=== PATIENT | male | born 1965 | race Caucasian/White ===

== ENCOUNTER 2017-01-20 13:07 | Observation (INO) | payer OTHER ==
[2017-01-20 13:46] LABS: ANION GAP 17 mEq/L (8-16); CALCIUM 9.6 mg/dL (8.5-10.4); CARBON DIOXIDE 19 mEq/l (22-31); CHLORIDE 107 mEq/L (97-110); GLOMERULAR FILTRATION RATE > 60; GLUCOSE 96 mg/dL (70-100); POTASSIUM 3.5 mEq/L (3.5-5.2); SODIUM 143 mEq/L (134-144)
[2017-01-20 13:59] LABS: TROPONIN I 0.726 ng/mL (0.000-0.034)
--- NOTE | 2017-01-20 13:59 | EDPHY ---
H & P Stated Complaint: Feels shakey, anxious today, feels like heart is racing Time Seen by Provider: 01/20/17 13:21 HPI/ROS: CHIEF COMPLAINT: Feeling anxious HISTORY OF PRESENT ILLNESS: The patient presents the ED after he developed symptoms of anxiety at work approximately 1 hr ago. The patient reports feeling restless and unsettled. He denies any chest pain or shortness of breath. He denies any acute headache, neck pain, numbness or weakness. The patient denies prior history of the symptoms. The patient denies any significant past medical history and specifically denies hypertension, diabetes and hyperlipidemia. The patient is a daily drinker and has approximately 1 glass of wine per night. He denies a significant change in his pattern of alcohol consumption. The patient denies obvious symptoms of stress or anxiety. REVIEW OF SYSTEMS: A comprehensive 10 point review of systems is otherwise negative aside from elements mentioned in the history of present illness. Source: Patient Exam Limitations: No limitations - Personal History Current Tetanus Diphtheria and Acellular Pertussis (TDAP): Yes - Social History Smoking Status: Never smoked - Physical Exam Exam: General Appearance: Alert, no distress Eyes: Pupils equal and round no pallor or injection ENT, Mouth: Mucous membranes moist Respiratory: There are no retractions, lungs are clear to auscultation Cardiovascular: Regular rate and rhythm Gastrointestinal: Abdomen is soft and nontender, no masses, bowel sounds normal Neurological: A&O, normal motor function, normal sensory exam, normal cranial nerves Skin: Warm and dry, no rashes Musculoskeletal: Neck is supple nontender Extremities: symmetrical, full range of motion Constitutional: Initial Vital Signs Temperature (C) 36.5 C 01/20/17 13:09 Heart Rate 71 01/20/17 13:09 Respiratory Rate 18 01/20/17 13:09 Blood Pressure 135/79 H 01/20/17 13:09 O2 Sat (%) 99 01/20/17 13:09 O2 Delivery Mode Room Air Allergies/Adverse Reactions: No Known Allergies Allergy (Unverified 01/20/17 13:12) Home Medications: Medication Instructions Recorded NK [No Known Home Meds] 01/20/17 Medical Decision Making - Diagnostics EKG Interpretation: EKG: Complete interpretation has been separately recorded in the [employer] archive. Summary impression: Sinus rhythm Imaging Results: Imaging Impressions Chest X-Ray 01/20/17 13:35 Impression: Clear lungs. Negative portable chest. ED Course/Re-evaluation: The patient presents to the emergency department after an episode of impending doom which occurred at work today. The patient did have some symptoms of fatigue throughout the day yesterday. He had no chest pain or shortness of breath per se. The patient arrived in the emergency department was noted to have a normal EKG. The patient did have an indeterminately elevated troponin of 0.7. I ordered an echocardiogram on the patient at 2:30 p.m.. 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 Baron. It shows no wall motion abnormality. Consultation was made with Cardiology. They are recommending admission to the hospitalist service for serial enzymes this evening. Consultation was made with Dr. Tom Hobbs from the hospitalist service at 3:30 p.m.. Differential Diagnosis: Differential diagnosis considered includes arrhythmia, anemia, acute coronary syndrome, anxiety reaction, metabolic abnormality, dehydration - Data Points Laboratory Results: Laboratory Results 01/20/17 13:25 01/20/17 13:25 01/20/17 01/20/17 13:25 13:25 WBC 6.52 10^3/uL 10^3/uL (3.80-9.50) RBC 5.11 10^6/uL 10^6/uL (4.40-6.38) Hgb 16.6 g/dL g/dL (13.7-17.5) Hct 44.8 % % (40.0-51.0) MCV 87.7 fL fL (81.5-99.8) MCH 32.5 pg pg (27.9-34.1) MCHC 37.1 g/dL H g/dL (32.4-36.7) RDW 12.2 % % (11.5-15.2) Plt Count 129 10^3/uL L 10^3/uL (150-400) MPV 10.3 fL fL (8.7-11.7) Neut % (Auto) 62.6 % % (39.3-74.2) Lymph % (Auto) 27.9 % % (15.0-45.0) Major % (Auto) 7.1 % % (4.5-13.0) Eos % (Auto) 1.2 % % (0.6-7.6) Baso % (Auto) 0.6 % % (0.3-1.7) Nucleat RBC Rel Count 0.0 % % (0.0-0.2) Absolute Neuts (auto) 4.08 10^3/uL 10^3/uL (1.70-6.50) Absolute Lymphs (auto) 1.82 10^3/uL 10^3/uL (1.00-3.00) Absolute Monos (auto) 0.46 10^3/uL 10^3/uL (0.30-0.80) Absolute Eos (auto) 0.08 10^3/uL 10^3/uL (0.03-0.40) Absolute Basos (auto) 0.04 10^3/uL 10^3/uL (0.02-0.10) Absolute Nucleated RBC 0.00 10^3/uL 10^3/uL (0-0.01) Immature Gran % 0.6 % % (0.0-1.1) Immature Gran # 0.04 10^3/uL 10^3/uL (0.00-0.10) Sodium 143 mEq/L mEq/L (134-144) Potassium 3.5 mEq/L mEq/L (3.5-5.2) Chloride 107 mEq/L mEq/L (97-110) Carbon Dioxide 19 mEq/l L mEq/l (22-31) Anion Gap 17 mEq/L H mEq/L (8-16) BUN 15 mg/dL mg/dL (7-23) Creatinine 1.0 mg/dL mg/dL (0.7-1.3) Estimated GFR > 60 Glucose 96 mg/dL mg/dL (70-100) Calcium 9.6 mg/dL mg/dL (8.5-10.4) Troponin I 0.726 ng/mL H ng/mL (0.000-0.034) Departure - Departure Disposition: [facility] Inpatient Acute Clinical Impression: Elevated troponin Condition: Good Referrals: MEGHA HICKEY [Primary Care Provider] - As per Instructions
[2017-01-20 14:11] LABS: % IMMATURE GRANULYOCYTES 0.6 % (0.0-1.1); ABSOLUTE IMMATURE GRANULOCYTES 0.04 10^3/uL (0.00-0.10); ADD DIFF? NO; ADD MORPH? NO; ADD SCAN? NO; ATYPICAL LYMPHOCYTE FLAG 10 (0-99); FRAGMENT RBC FLAG 0 (0-99); HEMATOCRIT 44.8 % (40.0-51.0); HEMOGLOBIN 16.6 g/dL (13.7-17.5); LEFT SHIFT FLG 0 (0-99); LIPEMIA HEMOLYSIS FLAG 90 (0-99); MEAN CELL HEMOGLOBIN 32.5 pg (27.9-34.1); MEAN CELL HEMOGLOBIN CONCENTR. 37.1 g/dL (32.4-36.7); MEAN CELL VOLUME 87.7 fL (81.5-99.8); MEAN PLATELET VOLUME 10.3 fL (8.7-11.7); PLATELET CLUMPS FLAG 0 (0-99); PLATELET COUNT 129 10^3/uL (150-400); RED BLOOD CELL COUNT 5.11 10^6/uL (4.40-6.38); RED CELL DISTRIBUTION WIDTH 12.2 % (11.5-15.2)
--- NOTE | 2017-01-20 14:21 | CPEKG ---
Heart Rate: 65 RR Interval: 923 P-R Interval: 156 QRSD Interval: 88 QT Interval: 408 QTC Interval: 425 P [place]: 57 QRS [place]: 24 T Wave [place]: 9 EKG Severity - NORMAL ECG - EKG Impression: SINUS RHYTHM Electronically Signed By: Manuel Grewal 20-Jan-2017 15:55:50
[2017-01-20] MEDS ORDERED: ACETAMINOPHEN 325 MG TAB PO PRN (15:31)
[2017-01-20] MEDS ORDERED: LORazepam 0.5 MG TAB PO PRN (15:31)
[2017-01-20] MEDS ORDERED: ONDANSETRON DISINTEGRATING 4 MG TAB PO PRN (15:31)
[2017-01-20] MEDS ORDERED: ONDANSETRON 4 MG/2 ML VIAL IVP PRN (15:31)
--- NOTE | 2017-01-20 15:45 | PDCARCONS ---
Cardiology Consult Reason for Consult: Non specific ECG changes with mild elevation in troponin Chief Complaint: Patient felt "impending doom" Requesting Physician: ER physician History of Present Illness: Patient is a 51 y/o male with unremarkable past medical history (no history of CAD, HTN, HLP, or DM), who presented to the ER via private transport after acutely feeling poorly at work. Patient's description at work was that of "impending doom". No complaints of chest pains or pressure. No PND or orthopnea. No fevers, but possible chills were noted. Two days prior (on Friday), the patient had a work green party, and drank about five glasses of wine ( more than is usual for the patient). All day Friday, the following day, the patient felt poorly, but did not feel that this represented being "hung over". Sleep overnight was very poor (according to both patient and , present at the green party as well). In elementary school, the patient was told that he had "an abnormal heart sound", but no formal work up was performed. No family history of premature CAD. Sibling health is also unremarkable. Patient takes no medications, but mild elevation in blood pressure (150 mm Hg systolic) was noted in the ER today. Recent change of jobs with more commute time (from [employer] to [place]), but no real change in stressors (elevated). was present with the patient in the ER today. No regular or routine exercise (this dropped from about six months ago, when with prior job, the patient was able to get more regular exercise). Remainder of 12 point review of systems was unremarkable. History Information - Allergies/Home Medication List Allergies/Adverse Reactions: No Known Allergies Allergy (Unverified 01/20/17 13:12) Home Medications: NK [No Known Home Meds] 01/20/17 [Last Taken Unknown] Past Medical History: - Past Medical History no pertinent PMH - Surgical History Reports: no pertinent surgical hx - Family History Positive for: non-pertinent - Social History Smoking Status: Never smoked Alcohol Use: Rarely Drug Use: None Cardiac History - Cardiac History Cardiac Risk Factors: male Timing/Duration: Hours Severity: moderate Severity Scale: 7 Activities at Onset: none Modifying Factors: improves with: rest Associated Symptoms: weakness Physical Exam Physical Exam: Temp Pulse Resp BP Pulse Ox 36.5 C 73 16 148/80 H 97 01/20/17 13:09 01/20/17 15:34 01/20/17 15:34 01/20/17 15:34 01/20/17 15:34 Constitutional: no apparent distress, appears nourished, not in pain Eyes: PERRL Ears, Nose, Mouth, Throat: moist mucous membranes, hearing normal, ears appear normal Cardiovascular: regular rate and rhythym, no murmur, rub, or gallop, pulses symmetric bilaterally, No systolic murmur, No irregularly irregular, No diastolic murmur, No JVD, No tachycardia Peripheral Pulses: 2+: dorsalis-pedis (R), dorsalis-pedis (L) Respiratory: no respiratory distress, no rales or rhonchi, clear to auscultation Gastrointestinal: normoactive bowel sounds Skin: warm, normal color Musculoskeletal: full muscle strength, no muscle tenderness, normal joint ROM Neurologic: AAOx3, sensation intact bilaterally, CN II-XII Intact Psychiatric: interacting appropriately, not anxious, not encephalopathic Lab and Imaging 01/20/17 13:25 01/20/17 13:25 WBC 6.52 10^3/uL (3.80-9.50) 01/20/17 13:25 RBC 5.11 10^6/uL (4.40-6.38) 01/20/17 13:25 Hgb 16.6 g/dL (13.7-17.5) 01/20/17 13:25 Hct 44.8 % (40.0-51.0) 01/20/17 13:25 MCV 87.7 fL (81.5-99.8) 01/20/17 13:25 MCH 32.5 pg (27.9-34.1) 01/20/17 13:25 MCHC 37.1 g/dL (32.4-36.7) H 01/20/17 13:25 RDW 12.2 % (11.5-15.2) 01/20/17 13:25 Plt Count 129 10^3/uL (150-400) L 01/20/17 13:25 MPV 10.3 fL (8.7-11.7) 01/20/17 13:25 Neut % (Auto) 62.6 % (39.3-74.2) 01/20/17 13:25 Lymph % (Auto) 27.9 % (15.0-45.0) 01/20/17 13:25 [place] % (Auto) 7.1 % (4.5-13.0) 01/20/17 13:25 Eos % (Auto) 1.2 % (0.6-7.6) 01/20/17 13:25 Baso % (Auto) 0.6 % (0.3-1.7) 01/20/17 13:25 Nucleat RBC Rel Count 0.0 % (0.0-0.2) 01/20/17 13:25 Absolute Neuts (auto) 4.08 10^3/uL (1.70-6.50) 01/20/17 13:25 Absolute Lymphs (auto) 1.82 10^3/uL (1.00-3.00) 01/20/17 13:25 Absolute Monos (auto) 0.46 10^3/uL (0.30-0.80) 01/20/17 13:25 Absolute Eos (auto) 0.08 10^3/uL (0.03-0.40) 01/20/17 13:25 Absolute Basos (auto) 0.04 10^3/uL (0.02-0.10) 01/20/17 13:25 Absolute Nucleated RBC 0.00 10^3/uL (0-0.01) 01/20/17 13:25 Immature Gran % 0.6 % (0.0-1.1) 01/20/17 13:25 Immature Gran # 0.04 10^3/uL (0.00-0.10) 01/20/17 13:25 Sodium 143 mEq/L (134-144) 01/20/17 13:25 Potassium 3.5 mEq/L (3.5-5.2) 01/20/17 13:25 Chloride 107 mEq/L (97-110) 01/20/17 13:25 Carbon Dioxide 19 mEq/l (22-31) L 01/20/17 13:25 Anion Gap 17 mEq/L (8-16) H 01/20/17 13:25 BUN 15 mg/dL (7-23) 01/20/17 13:25 Creatinine 1.0 mg/dL (0.7-1.3) 01/20/17 13:25 Estimated GFR > 60 01/20/17 13:25 Glucose 96 mg/dL (70-100) 01/20/17 13:25 Calcium 9.6 mg/dL (8.5-10.4) 01/20/17 13:25 Troponin I 0.726 ng/mL (0.000-0.034) H 01/20/17 13:25 Visualized and Interpreted Chest x-ray results: Yes Chest X-ray Interpretation: no infiltrate, normal Visualized and Interpreted imaging results: Yes EKG Interpretation: Positive for: normal sinsus rhythm, NS ST wave abnormalities Telemetry: sinus rhythm with non specific ST/T wave changes noted Echocardiogram: normal wall motion. no chamber dilation. no valve pathology A/P Assessment: Patient is a 51 y/o male with unremarkable past cardiovascular history, with complaints of "not feeling well" for the last two day. An acute sense of "doom " washed over the patient while at work today, and he was brought to the ER by a coworker. In the ER, ECG was obtained (non specific ST/T wave changes), and labs (minor elevation in first troponin was noted (0.7)). Echocardiogram at bedside without wall motion abnormalities noted. No valve pathology was noted. Patient stated that he felt much better after being in the ER. Plan: Plan for patient to have serial ECG and cardiac biomarkers to determine if there is evolution to the findings that have been noted. Would monitor blood pressure (mildly elevated in the ER, but possibly due to the stress of the ER). Would obtain FLP and LFTs for assessment of HLP as untreated CV risk. 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 ASA therapy was started by the patient, and given age and sex, should continue. Will continue to follow this patient. Option available are MPI testing (with subtle baseline ECG changes) as well as invasive left heart catheterization. With lack of traditional symptoms and normal wall motion on echocardiography, would refrain from the invasive testing option at present.
--- NOTE | 2017-01-20 16:16 | ECHO ---
[email or web address] [address] [address] Main: [phone] Fax: Transthoracic Echocardiogram Name: JEANNA HERNANDEZ MR#: [id number] Study Date: 01/20/2017 Study Time: 02:51 PM Date of : 1965 Age: 51 year(s) Height: 188 cm (74 in.) Weight: 95.26 kg (210 lb.) BSA: 2.22 m2 Gender: Male Examination: Echo Indication: Chest pain/elevated troponin Image Quality: Contrast: Requested by: Manuel Grewal BP: 124 mmHg/79 mmHg Heart Rate: Rhythm: Indication: Chest pain/elevated troponin Procedure Staff Pants Presser: Candi Sahu Reading Physician: Bryan Baron Requesting Provider: Conclusions: Normal size left ventricle. No LV hypertrophy. Normal global systolic LV function. EF is 70 %. Normal size right ventricle. The left atrium is normal in size. The right atrium is normal in size. The mitral valve is normal in appearance and function. Trivial to mild mitral regurgitation. The aortic valve is normal in appearance and function. Trivial aortic valve regurgitation. The tricuspid valve is normal in appearance and function. The pulmonic valve is normal in appearance and function. Measurements: Chambers Valvular Assessment AV/MV Valvular Assessment TV/PV Normal Normal Normal Name Value Range Name Value Range Name Value Range Ao Yeny (MM): 3.7 cm (2.2 cm-3.7 AV Vmax: 1.37 m/s (1 m/s-1.7 cm) m/s) IVSd (2D): 0.9 cm (0.6 cm-1.1 AV maxP mmHg ( - ) cm) MV E Vmax: 0.73 m/s ( - ) LVDd (2D): 5.3 cm (4.2 cm-5.9 MV A Vmax: 0.55 m/s ( - ) cm) MV E/A: 1.33 ( - ) LVDs (2D): 2.7 cm (2.1 cm-4 cm) LVPWd (2D): 1.1 cm (0.6 cm-1 cm) LVEF (MOD4): 70 % (>=55 %) Patient: JEANNA HERNANDEZ Study Date: 01/20/2017 Page 1 of 2 02:51 PM Continued Measurements: Chambers Valvular Assessment AV/MV Name Value Name Value LADs: 4.2 cm MV E/E' Septal: 9.10 LADs Lon.6 cm MV E/E' Lateral: 8.10 LA Area: 15.2 cm2 Additional Vessels Name Value Ao Ascendin.3 cm Findings: Left Ventricle: Normal size left ventricle. No LV hypertrophy. Normal global systolic LV function. EF is 70 %. No regional wall motion abnormality. Right Ventricle: Normal size right ventricle. Left Atrium: The left atrium is normal in size. Right Atrium: The right atrium is normal in size. Mitral Valve: The mitral valve is normal in appearance and function. Trivial to mild mitral regurgitation. Aortic Valve: The aortic valve is normal in appearance and function. Trivial aortic valve regurgitation. Tricuspid Valve: The tricuspid valve is normal in appearance and function. Pulmonic Valve: The pulmonic valve is normal in appearance and function. Aorta: The aorta is normal. Pericardium: No pericardial effusion. (No Signature Object) Patient: JEANNA HERNANDEZ Study Date: 01/20/2017 Page 2 of 2 02:51 PM [id number]
--- NOTE | 2017-01-20 17:01 | PDGENHP ---
History and Physical - Chief Complaint Acute impending doom - History of Present Illness Primary care provider: Dr. Gerald Nick HPI: 51-year-old male presents with symptoms of impending doom characterized as anxiety, restlessness, out-of-body experience, with onset of symptoms around 12:00 p.m. on the day of presentation and duration approximately 1 hr thereafter. The patient reports that they occurred in the context of a fairly stressful work situation and they were not alleviated by attempting to calm himself down and rest. The patient took 2 full-dose aspirins and after he presented to the emergency department, his symptoms began to subside. He denies any overt chest pain or shortness of breath, but does endorse that he has been experiencing a cough with intermittent general malaise over the past several weeks. The symptoms have been mostly subsiding though prior to presentation. He reports that at baseline he is ambulatory and active, but he has not engaged in any scheduled exercise recently. He has noted no reduction in activities of daily living or any other exertional symptoms. He has also never experienced the aforementioned symptoms. History Information - Allergies/Home Medication List Allergies/Adverse Reactions: No Known Allergies Allergy (Unverified 01/20/17 13:12) Home Medications: NK [No Known Home Meds] 01/20/17 [Last Taken Unknown] I have personally reviewed and updated: family history, medical history, social history, surgical history - Past Medical History no pertinent PMH - Surgical History Additional surgical history: Hand surgery - Family History Positive for: non-pertinent Additional family history: Mother with venous thromboembolism - Social History Smoking Status: Never smoked Alcohol Use: Occasionally (Daily wine, never experienced alcohol withdrawal) Drug Use: None 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, 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 Review of Systems Review of Systems: ROS: 10pt was reviewed & negative except for what was stated in HPI & below Constitutional: Reports: other (Anxiety, restless comma of body experience) Physical Exam Physical Exam: Temp Pulse Resp BP Pulse Ox 37.2 C 68 14 127/73 H 98 01/20/17 16:15 01/20/17 16:15 01/20/17 16:15 01/20/17 16:15 01/20/17 16:15 Constitutional: no apparent distress, appears nourished, not in pain Eyes: PERRL, anicteric sclera, EOMI Ears, Nose, Mouth, Throat: moist mucous membranes, hearing normal, ears appear normal, no oral mucosal ulcers Cardiovascular: regular rate and rhythym, no murmur, rub, or gallop, No edema Respiratory: no respiratory distress, no rales or rhonchi, clear to auscultation Gastrointestinal: normoactive bowel sounds, soft, non-tender abdomen, no palpable masses Skin: warm, normal color, no rashes or abrasions, no fluctuance, no induration, No mottled Neurologic: AAOx3, sensation intact bilaterally, No weakness Psychiatric: interacting appropriately, not anxious, not encephalopathic, thought process linear Lab Data & Imaging Review 01/20/17 13:25 01/20/17 13:25 WBC 6.52 10^3/uL (3.80-9.50) 01/20/17 13:25 RBC 5.11 10^6/uL (4.40-6.38) 01/20/17 13:25 Hgb 16.6 g/dL (13.7-17.5) 01/20/17 13:25 Hct 44.8 % (40.0-51.0) 01/20/17 13:25 MCV 87.7 fL (81.5-99.8) 01/20/17 13:25 MCH 32.5 pg (27.9-34.1) 01/20/17 13:25 MCHC 37.1 g/dL (32.4-36.7) H 01/20/17 13:25 RDW 12.2 % (11.5-15.2) 01/20/17 13:25 Plt Count 129 10^3/uL (150-400) L 01/20/17 13:25 MPV 10.3 fL (8.7-11.7) 01/20/17 13:25 Neut % (Auto) 62.6 % (39.3-74.2) 01/20/17 13:25 Lymph % (Auto) 27.9 % (15.0-45.0) 01/20/17 13:25 [place] % (Auto) 7.1 % (4.5-13.0) 01/20/17 13:25 Eos % (Auto) 1.2 % (0.6-7.6) 01/20/17 13:25 Baso % (Auto) 0.6 % (0.3-1.7) 01/20/17 13:25 Nucleat RBC Rel Count 0.0 % (0.0-0.2) 01/20/17 13:25 Absolute Neuts (auto) 4.08 10^3/uL (1.70-6.50) 01/20/17 13:25 Absolute Lymphs (auto) 1.82 10^3/uL (1.00-3.00) 01/20/17 13:25 Absolute Monos (auto) 0.46 10^3/uL (0.30-0.80) 01/20/17 13:25 Absolute Eos (auto) 0.08 10^3/uL (0.03-0.40) 01/20/17 13:25 Absolute Basos (auto) 0.04 10^3/uL (0.02-0.10) 01/20/17 13:25 Absolute Nucleated RBC 0.00 10^3/uL (0-0.01) 01/20/17 13:25 Immature Gran % 0.6 % (0.0-1.1) 01/20/17 13:25 Immature Gran # 0.04 10^3/uL (0.00-0.10) 01/20/17 13:25 Sodium 143 mEq/L (134-144) 01/20/17 13:25 Potassium 3.5 mEq/L (3.5-5.2) 01/20/17 13:25 Chloride 107 mEq/L (97-110) 01/20/17 13:25 Carbon Dioxide 19 mEq/l (22-31) L 01/20/17 13:25 Anion Gap 17 mEq/L (8-16) H 01/20/17 13:25 BUN 15 mg/dL (7-23) 01/20/17 13:25 Creatinine 1.0 mg/dL (0.7-1.3) 01/20/17 13:25 Estimated GFR > 60 01/20/17 13:25 Glucose 96 mg/dL (70-100) 01/20/17 13:25 Calcium 9.6 mg/dL (8.5-10.4) 01/20/17 13:25 Troponin I 0.726 ng/mL (0.000-0.034) H 01/20/17 13:25 Visualized and Interpreted Chest x-ray results: Yes Chest X-Ray results: no infiltrate Visualized and Interpreted EKG results: Yes EKG Interpretation: Positive for: other (Normal sinus mechanism, less than [address]-depression in the inferior leads) Assessment & Plan Assessment: 51-year-old male presents with acute distress Plan: 1. Acute distress. New problem this provider, further workup indicated. Potentially an anginal equivalent, provoked by stressful situation, in the setting of abnormal troponin level, may be considered stable angina, venous thromboembolism should be ruled out -get D-dimer, if positive get CT angiogram -abnormal troponin level on presentation, cycle cardiac enzymes, if rising, cardiac catheterization and treat as acute coronary syndrome with systemic anticoagulation, beta-anastacia, aspirin -if cardiac enzymes remain flat and downtrending, get treadmill nuclear test in a.m., given underlying EKG abnormalities -continue full-dose aspirin sign-continue monitor on telemetry -discussed with Dr. Bryan Baorn, he reports no echo abnormalities at rest, he and I both agree to the mention Plan -if all the above unremarkable, may have been acute panic attack, resulting in myocardial stress Diet. Regular, NPO after midnight Prophylaxis. Low risk patient, SCDs Code. Full Disposition. Anticipated discharge is 01/21, pending further workup as outlined above.
[2017-01-21 05:51] LABS: ALANINE AMINOTRANSFERASE 42 IU/L (21-72); ALKALINE PHOSPHATASE 72 IU/L (38-126); ANION GAP 13 mEq/L (8-16); ASPARTATE AMINOTRANSFERASE 24 IU/L (17-59); BILIRUBIN,TOTAL 0.9 mg/dL (0.1-1.4); CALCIUM 9.4 mg/dL (8.5-10.4); CARBON DIOXIDE 23 mEq/l (22-31); CHLORIDE 109 mEq/L (97-110); CREATININE 1.1 mg/dL (0.7-1.3); GLOMERULAR FILTRATION RATE > 60; GLUCOSE 93 mg/dL (70-100); MAGNESIUM 2.2 mg/dL (1.6-2.3); SODIUM 145 mEq/L (134-144); TOTAL PROTEIN 6.4 g/dL (6.3-8.2)
[2017-01-21 05:52] LABS: TROPONIN I 0.435 ng/mL (0.000-0.034)
[2017-01-21 05:57] LABS: % IMMATURE GRANULYOCYTES 0.5 % (0.0-1.1); ABSOLUTE IMMATURE GRANULOCYTES 0.03 10^3/uL (0.00-0.10); ADD DIFF? NO; ADD MORPH? NO; ADD SCAN? NO; ATYPICAL LYMPHOCYTE FLAG 0 (0-99); FRAGMENT RBC FLAG 0 (0-99); HEMATOCRIT 44.1 % (40.0-51.0); LEFT SHIFT FLG 0 (0-99); LIPEMIA HEMOLYSIS FLAG 90 (0-99); MEAN CELL HEMOGLOBIN 32.5 pg (27.9-34.1); MEAN CELL HEMOGLOBIN CONCENTR. 36.3 g/dL (32.4-36.7); MEAN CELL VOLUME 89.6 fL (81.5-99.8); MEAN PLATELET VOLUME 10.3 fL (8.7-11.7); PLATELET CLUMPS FLAG 20 (0-99); PLATELET COUNT 123 10^3/uL (150-400); RED BLOOD CELL COUNT 4.92 10^6/uL (4.40-6.38); RED CELL DISTRIBUTION WIDTH 12.2 % (11.5-15.2)
[2017-01-21] MEDS ORDERED: ASPIRIN EC 325 MG TAB PO SCH (09:00)
--- NOTE | 2017-01-21 09:42 | CPEKG ---
Heart Rate: 71 RR Interval: 845 P-R Interval: 156 QRSD Interval: 88 QT Interval: 396 QTC Interval: 431 P [place]: 67 QRS [place]: 33 T Wave [place]: 5 EKG Severity - ABNORMAL ECG - EKG Impression: SINUS RHYTHM EKG Impression: CONSIDER POSTERIOR INFARCT Electronically Signed By: Arlen Hilliard 21-Jan-2017 12:48:07
--- NOTE | 2017-01-21 10:28 | PDCARPN ---
Cardiology Progress Note Chief Complaint: Feeling poorly the past two days with mild elevation in troponin and non specific ST/T wave changes on ECG Assessment/Plan: Assessment: 01-21-17 Patient feeling better today. Fair sleep overnight. Troponins with normalization of the second, but continued elevation to the third assessment. ECG today with continued, non specific ST/T wave changes noted. No complaints of chest pains or pressure. No PND or orthopnea. and parents (patient's birthday today) were present in the room with the patient today. 01-20-17 Patient is a 51 y/o male with unremarkable past medical history (no history of CAD, HTN, HLP, or DM), who presented to the ER via private transport after acutely feeling poorly at work. Patient's description at work was that of "impending doom". No complaints of chest pains or pressure. No PND or orthopnea. No fevers, but possible chills were noted. Two days prior (on Friday), the patient had a work constitution party, and drank about five glasses of wine ( more than is usual for the patient). All day Friday, the following day, the patient felt poorly, but did not feel that this represented being "hung over". Sleep overnight was very poor (according to both patient and , present at the constitution party as well). In elementary school, the patient was told that he had "an abnormal heart sound", but no formal work up was performed. No family history of premature CAD. Sibling health is also unremarkable. Patient takes no medications, but mild elevation in blood pressure (150 mm Hg systolic) was noted in the ER today. Recent change of jobs with more commute time (from [employer] to [employer]), but no real change in stressors (elevated). was present with the patient in the ER today. No regular or routine exercise (this dropped from about six months ago, when with prior job, the patient was able to get more regular exercise). Remainder of 12 point review of systems was unremarkable. Plan: Several options were discussed with the patient including MPI stress testing and angiography. I feel that the definitive test with more complete answer is the angiogram. Risks and benefits of this procedure were discussed, and the patient has agreed to proceed. Further recommendations to follow after diagnostic procedure completed. Subjective: No cardiovascular complaints Reviewed/Discussed With: family, hospitalist, multidisciplinary team Objective: Vital Signs (8 Hrs) Temp Pulse Resp BP Pulse Ox 01/21/17 07:24 37.4 C 69 16 137/79 H 98 01/21/17 04:00 36.8 C 61 16 120/80 99 Intake/Output (24 Hrs) 01/20/17 01/21/17 01/22/17 05:59 05:59 05:59 Intake Total 600 Output Total 450 Balance 150 Intake: Oral (ml) 600 Output: Urine (ml) 450 Urinal 450 Other: Weight 95.254 kg Number of Voids 1 Toilet 1 Result Diagrams: 01/21/17 03:34 01/21/17 03:34 Cardiac Labs: Cardiac Lab Results (72 Hrs) 01/21/17 01/20/17 03:34 16:57 Troponin I 0.435 H < 0.012 EKG: sinus rhythm with non specific ST/T wave changes noted Telemetry: Sinus rhythm - Physical Exam Constitutional: WDWN, healthy appearing, no apparent distress Eyes: PERRL, EOMI Ears, Nose, Mouth, Throat: moist mucous membranes Cardiovascular: regular rate and rhythm, no murmurs, no rubs, no gallops, pulses symmetric bilat Peripheral Pulses: 2+: dorsalis-pedis (R), dorsalis-pedis (L) Respiratory: clear to auscultate bilat, no crackles, no wheezes Gastrointestinal: normoactive bowel sounds Skin: no rashes, no edema Musculoskeletal: no muscular tenderness Neurologic: AAOx3, CN II-XII grossly intact Psychiatric: cooperative, interactive, following commands ICD10 Worksheet Patient Problems: Problems Problem Status Onset Elevated troponin Acute
--- NOTE | 2017-01-21 10:30 | PDPROPOC ---
Sedation Plan of Care Sedation Plan of Care: vital signs stable, mental status noted, patient educated of risks, benefits, alternatives, patient can tolerate sedation ASA Classification: ASA 2 Planned drugs: fentanyl, midazolam Mallampati Score: Class 1 Mallampati Reference Image: Patient passed 3-3-2 rule?: Yes
[2017-01-21] MEDS ORDERED: IOPAMIDOL (ISOVUE-370) 150 ML BTL IV ONE (10:42)
[2017-01-21] MEDS ORDERED: fentaNYL 100 MCG/2 ML INJ ONE (10:42)
[2017-01-21] MEDS ORDERED: LIDOCAINE 1% 300 MG/30 ML SDV ONE (10:42)
[2017-01-21] MEDS ORDERED: MIDAZOLAM 2 MG/2 ML VIAL ONE ×2 (10:42→11:07)
[2017-01-21] MEDS ORDERED: NS 1,000 ML IV ONE (10:43)
[2017-01-21] MEDS ORDERED: diphenhydrAMINE 25 MG CAP PO ONE ×2 (10:43→10:44)
[2017-01-21] MEDS ORDERED: FAMOTIDINE 20 MG TAB PO ONE (10:43)
[2017-01-21] MEDS ORDERED: DIAZEPAM 5 MG TAB PO ONE (10:43)
[2017-01-21] MEDS ORDERED: DIAZEPAM 5 MG TAB ONE (10:45)
[2017-01-21] MEDS ORDERED: FAMOTIDINE 20 MG TAB ONE (10:45)
--- NOTE | 2017-01-21 11:03 | ASMTCMCOM ---
CM Note CM Note Notes: 01/21/2017 Case Management Note Reviewed chart, discussed with RN. There are no case management d/c needs identified d/t pt age, employment status, marital status and activity levels prior to admission. There are no PT or OT evals ordered at this time. Case Management d/c poc: home independent with follow up as directed. Case Management available if needs change. Date Signed: 01/21/2017 11:03 AM Electronically Signed By:Verito Barragan RN
[2017-01-21] MEDS ORDERED: ONDANSETRON 4 MG/2 ML VIAL IVP PRN (12:13)
[2017-01-21] MEDS ORDERED: OXYCODONE/APAP 5/325 TAB PO PRN (12:13)
[2017-01-21] MEDS ORDERED: NITROGLYCERIN 0.4 MG BTL SL PRN (12:13)
[2017-01-21] MEDS ORDERED: HYDROCODONE/APAP 5/325 TAB PO PRN (12:13)
[2017-01-21] MEDS ORDERED: ATROPINE SULFATE 1 MG/10 ML SYR IVP PRN (12:13)
--- NOTE | 2017-01-21 12:18 | PDDXCAT ---
Diagnostic Cath Note - . Date: 01/21/17 [place]sterman: Tod Indication: other (elevated troponins with ECG changes concerning for ischaemia) - Procedure Access: right groin Procedure: left heart catheterization, coronary angiography, left ventriculogram - Materials Left Heart Cath size: 6F Left Heart Cath materials: standard multipack (JL4, JR4, pigtail) - Findings-Left Heart Catheterization LM: Lenthy vessel with bifurcation into the LAD and LCX. No luminal irregularities were noted. LAD: Medium diameter vessel with a 10% lesion in the proximal portion, just prior to the D1 (principal). Wrap around distal LAD to the apex. No other luminal irregularities were noted. LCX: Medium to large diameter vessel with an early OM1 (principal). The second OM is roughly the same diameter as the take off from the LCX. No luminal irregularties were noted. RCA: Medium diameter vessel with supply to the PDA and PEGGY. Two separtate vessels to the PDA territory. No luminal irregularities were noted. EDP: 12 mm Hg LVEF: 65-70% Wall motion: normal Complications: none Estimated blood loss: <50ml Closure method: manual pressure Assessment: Patient is a 52 y/o male with unremarkable past cardiovascular history (no known CAD, HTN, HLP, or DM), with "impending doom". Mild elevation in troponin was noted, but inconsistancy in trend (elevated, normal, elevated) as well as non specific ST/T wave changes led to angiography. No critical lesions were noted. Normal LVEF was appreciated. There was a 10% luminal irregularity to the proximal LAD Plan: ASA therapy for life (81 mg per day). Assessment of FLP/LFT to determine the degree of aggressive cholesterol control needed (LDL should be <70). Outpatient follow up with cardiology in 1 week is recommended. Intervention: none Patient Problems: Problems Problem Status Onset Elevated troponin Acute
[2017-01-21 13:55] VITALS: BP 117/77
[2017-01-21 15:12] VITALS: PULSE 67; RESP 16; TEMP 98.8; O2SAT 97
[2017-01-21 16:31] LABS: PHENCYCLIDINE URINE BCH < 6 ng/ml (NEGATIVE); PHENCYCLIDINE URINE BCH NEGATIVE (NEGATIVE); TETRAHYDROCANNABINOL URINE < 5 ng/mL (NEGATIVE); TETRAHYDROCANNABINOL URINE NEGATIVE (NEGATIVE)
--- NOTE | 2017-01-21 18:37 | PDDCSUM ---
Discharge Summary Discharge Summary: DISCHARGE DIAGNOSES: -presenting symptom of impending doom, resolved, uncertain etiology -elevated cardiac troponin without any evidence of impaired myocardial function , and with no significant stenotic lesions on coronary angiography -negative urine drug screen for cocaine or amphetamines CONSULTANTS: Dr. Bryan Baron PROCEDURES: Coronary angiography HOSPITAL COURSE SUMMARY: This patient presented to the hospital with symptoms described as a sense of impending doom. There was not typical angina and there was not shortness of breath. There is no evidence of arrhythmia or heart failure or acute lung illness and his vital signs were stable. He had an unremarkable examination overall. He had a EKG with sinus rhythm and with some very subtle ST abnormalities that were not diagnostic but could not entirely rule out that they might not be ischemic. His 1st troponin was very mildly elevated, the 2nd troponin normal and the 3rd troponin slightly higher. A urine drug screen is negative. Benzodiazepine show up but he had been given these here in the hospital prior to the drug screen. On cardiac monitors here he did not have any arrhythmia. He developed no abnormalities of vital signs and developed no heart failure findings on exam or symptoms. His sense of impending doom has completely resolved and has not recurred. Because of the concern with the abnormal cardiac troponins and the nondiagnostic EKG changes, the patient was taken to angiography. There he had a 10% plaque of left anterior descending artery but no other significant atherosclerosis. Echocardiogram showed normal muscle in valve function and anatomy, essentially a normal study. The patient is eating well up walking in the hallways, no shortness of breath essentially asymptomatic at this point. He is felt stable for discharge to home PENDING TEST RESULTS: None MEDICATION CHANGES: Daily aspirin FOLLOW-UP PLAN: In 1-[address] Baron will see him here if he wishes but it sounds like the patient will try and seek out referral to another cardiology group closer to home through his primary care physician. He will plan to see his primary care physician this week
[2017-01-22] MEDS ORDERED: ASPIRIN EC 81 MG TAB PO SCH (09:00)
== END 2017-01-21 18:05 | disposition home or self-care (01) ==
LOC: F2W 16:05
PROVIDERS: ADMIT Internal Medicine; ATTEND Internal Medicine
PROC: B2151ZZ Fluoroscopy of Left Heart using Low Osmolar Contrast (ICD-10-PCS; principal; 2017-01-21)
PROC: B2111ZZ Fluoroscopy of Multiple Coronary Arteries using Low Osmolar Contrast (ICD-10-PCS; principal; 2017-01-21)
PROC: 4A023N7 Measurement of Cardiac Sampling and Pressure, Left Heart, Percutaneous Approach (ICD-10-PCS; principal; 2017-01-21)
DX: R78.89 Finding of other specified substances, not normally found in blood (principal); F41.8 Other specified anxiety disorders
CPT/HCPCS: 71010; 93005; 93306; 93458; G0378; 80307; G0480; J1644; J2250; J3010; Q9967